=== PATIENT | female | born 1950 | race Two or more races ===

== ENCOUNTER → 2024-02-16 08:12 | Outpatient (REF) | payer MEDICARE, OTHER, SELFPAY | LOC: RAD 08:12 | PROVIDERS: ATTENDING PHYSICIAN Specialist; FAMILY PHYSICIAN Family Medicine | DX: Z96.651 Presence of right artificial knee joint (principal); M25.561 Pain in right knee | CPT/HCPCS: 78315; A9503 ==

== ENCOUNTER → 2024-06-14 14:17 | Outpatient (REF) | payer MEDICARE, OTHER, SELFPAY ==
[2024-06-14 16:48] LABS: Albumin 4.1 g/dl (3.5-5.0); Calcium 9.4 mg/dl (8.4-10.2)
[2024-06-14 16:54] LABS: Prealbumin (Transthyretin) 29.8 mg/dl (17.6-36.0)
[2024-06-14 17:21] LABS: TSH Reflex To Free T4 1.47 uIU/ml (0.47-4.68)
[2024-06-15 12:27] LABS: Intact PTH 145.7 pg/ml (13.6-85.8)
[2024-06-17 02:10] LABS: Vitamin D 1,25 Dihydroxy 30.7 pg/mL (19.9-79.3)
== END ==
LOC: REG 14:17
PROVIDERS: ATTENDING PHYSICIAN Student in an Organized Health Care Education/Training Program; FAMILY PHYSICIAN Family Medicine
DX: M79.671 Pain in right foot (principal); N18.30 Chronic kidney disease, stage 3 unspecified; I10 Essential (primary) hypertension
CPT/HCPCS: 36415; 82040; 82306; 82652; 83970; 84134; 84443

== ENCOUNTER → 2024-09-11 14:30 | Outpatient (REF) | payer MEDICARE, OTHER, SELFPAY | LOC: RAD 14:30 | PROVIDERS: ATTENDING PHYSICIAN Student in an Organized Health Care Education/Training Program; FAMILY PHYSICIAN Family Medicine | DX: I73.9 Peripheral vascular disease, unspecified (principal); S92.514A Nondisplaced fracture of proximal phalanx of right lesser toe(s), initial encounter for closed fracture | CPT/HCPCS: 93923; 93925 ==

== ENCOUNTER → 2024-09-18 14:09 | Outpatient (REF) | payer MEDICARE, OTHER, SELFPAY ==
[2024-09-18 14:49] LABS: Ionized Calcium 1.24 mMOL/L (1.15-1.33)
[2024-09-18 16:30] LABS: ALT (SGPT) 16 U/L (0-35); AST (SGOT) 22 U/L (14-36); Albumin 4.1 g/dl (3.5-5.0); Alkaline Phosphatase 97 U/L (38-126); Blood Urea Nitrogen 39 mg/dl (7-17); Calcium 9.3 mg/dl (8.4-10.2); Carbon Dioxide 23 mmol/L (22-30); Chloride 104 mmol/L (98-107); Glucose 91 mg/dl (70-99); Phosphorus 3.4 mg/dl (2.5-4.5); Potassium 4.2 mmol/L (3.5-5.1); Sodium 138 mmol/L (135-145); Total Bilirubin 0.6 mg/dl (0.2-1.3); Total Protein 6.5 g/dl (6.3-8.2); eGFR 36.12
[2024-09-19 10:32] LABS: Intact PTH 94.7 pg/ml (13.6-85.8)
== END ==
LOC: REG 14:09
PROVIDERS: ATTENDING PHYSICIAN Registered Nurse; FAMILY PHYSICIAN Family Medicine
DX: E21.3 Hyperparathyroidism, unspecified (principal)
CPT/HCPCS: 36415; 80053; 82330; 83970; 84100

== ENCOUNTER → 2024-09-21 11:52 | Outpatient (REF) | payer MEDICARE, OTHER, SELFPAY ==
[2024-09-21 15:06] LABS: 24 Hour Urine Total Volume 1100 ml; Urine Calcium < 1.0 mg/dl
== END ==
LOC: REG 11:52
PROVIDERS: ATTENDING PHYSICIAN Registered Nurse; OTHER PHYSICIAN Family Medicine; REFERRING PHYSICIAN Student in an Organized Health Care Education/Training Program
DX: E21.3 Hyperparathyroidism, unspecified (principal)
CPT/HCPCS: 81050; 82340